=== PATIENT | male | born 1950 | race Caucasian/White ===

== ENCOUNTER 2024-03-02 13:32 | Outpatient (OUT) | payer MEDICARE, SELFPAY ==
--- NOTE | 2024-03-02 13:46 | XR_ITS ---
The [address] [address] Patient Name: DIVYA ASHLEY MRN: [id number] date: 1950 Sex: M Assigned Patient Location: LAB Current Patient Location: Accession/Order Number: [id number] Exam Date: 03/02/2024 13:49 Report Date: 03/03/2024 07:56 At the request of: TANMAY NUÑEZ Procedure: XR chest 2V EXAMINATION: XR chest 2V HISTORY: Pneumonia Due to Infectious Organism J18.9 COMPARISON: XR chest 01/20/2024 FINDINGS: LUNGS: Opacities within left lung base obscuring the diaphragm and lower heart margin. Large calcified left hilar lymph node. VASCULATURE: No increased pulmonary vasculature. PLEURA: [Pleural effusion. CARDIAC: No cardiomegaly or cardiac silhouette abnormality. MEDIASTINUM: Calcified subcarinal lymph nodes. BONES: No fracture or visible bone lesion. OTHER: Negative. XR/XR chest 2V IMPRESSION: 1. New moderate left pleural effusion and mild-moderate left basilar infiltrates versus atelectasis. 2. Chronic granulomatous disease. Electronically authenticated by: MARTÍN CORONADO Date: 03/03/2024 07:56
[2024-03-02 14:03] LABS: BUN Creatinine Ratio 9.3; Carbon Dioxide 32.5 mmol/L (21.0-32.0); Chloride 97 mmol/L (98-107); Estimated GFR (African America >60 (>=60); Estimated GFR (Non-African Ame >60 (>=60); Glucose 136 mg/dL (74-106); Potassium 3.5 mmol/L (3.5-5.1); Sodium 137 mmol/L (136-145)
[2024-03-02 14:27] LABS: Basophils Absolute Auto 0.1 10^3/uL (0.0-0.1); Basophils Percent Auto 0.5 % (0.2-2.0); Eosinophils Absolute Auto 0.4 10^3/uL (0.0-0.7); Eosinophils Percent Auto 3.8 % (0.9-7.0); Hematocrit 37.7 % (42.0-54.0); Hemoglobin 11.7 g/dL (14.0-18.0); Immature Granulocytes Abs Auto 0.05 10^3/uL (0.00-0.03); Immature Granulocytes Pct Auto 0.5 % (0.0-0.5); Lymphocytes Absolute Auto 1.7 10^3/uL (1.2-3.8); Lymphocytes Percent Auto 18.2 % (20.5-60.0); Mean Corpuscular Hemoglobin 27.1 pg (25.9-34.0); Mean Corpuscular Volume 87.3 fL (80.0-94.0); Mean Platelet Volume 9.5 fL (9.5-13.5); Monocytes Absolute Auto 0.8 10^3/uL (0.3-0.8); Neutrophils Absolute Auto 6.4 10^3/uL (1.4-6.5); Platelet Count 305 10^3/uL (150-450); Red Blood Count 4.32 10^6/uL (4.70-6.10); Red Cell Distribution Width 14.2 % (11.0-15.0); White Blood Count 9.3 10^3/uL (4.0-11.0)
== END 2024-03-02 13:33 | disposition home or self-care (01) ==
LOC: LAB 13:35
PROVIDERS: PCP Family Medicine; Visit Provider Family Medicine
DX: J18.9 Pneumonia, unspecified organism (principal); Z79.899 Other long term (current) drug therapy; J90 Pleural effusion, not elsewhere classified
CPT/HCPCS: 36415; 71046; 80048; 85025